=== PATIENT | male | born 2000 | race Hispanic/Latino ===

== ENCOUNTER 2018-04-24 14:39 | Emergency (ER) | payer BC ==
[~2018-04-24] VITALS: Ht 172.7 cm; Wt 104.3 kg
== END 2018-04-24 15:30 | disposition home or self-care (01) ==
LOC: FSED 14:39
DX: H92.03 Otalgia, bilateral (principal); J02.0 Streptococcal pharyngitis
CPT/HCPCS: 99283

== ENCOUNTER 2018-05-16 14:12 | Emergency (ER) | payer BC ==
[~2018-05-16] VITALS: Ht 172.7 cm; Wt 104.3 kg
[2018-05-16] MEDS ORDERED: IBUPROFEN 200 MG TAB PO SCH (14:30)
[2018-05-16] MEDS ORDERED: ONDANSETRON HCL 4 MG ORAL DISINTEGRATING TAB PO ONE (14:30)
[2018-05-16] MEDS ORDERED: ACETAMINOPHEN 325 MG TAB PO ONE (14:30)
--- NOTE | 2018-05-16 15:11 | NUR ---
ok per md to d/c with current vitals.
== END 2018-05-16 15:12 | disposition home or self-care (01) ==
LOC: FSED 14:12
DX: R50.9 Fever, unspecified (principal); R05 Cough; J11.1 Influenza due to unidentified influenza virus with other respiratory manifestations
CPT/HCPCS: 87400; 99284; Q0162